=== PATIENT | female | born 1940 | race Caucasian/White ===

== ENCOUNTER 2016-07-28 16:44 | Emergency (ER) | payer MEDICARE, OTHER ==
[~2016-07-28 16:44] MED LIST: Sodium Chloride 0.9% 1,000 ML BAG ONE
[2016-07-28] MEDS ORDERED: Ondansetron ODT 4 MG TAB ONE (17:06)
[2016-07-28] MEDS ORDERED: Promethazine HCl 25 MG/ML VIAL ONE (17:45)
[2016-07-28] MEDS ORDERED: Meclizine HCl 25 MG TAB ONE (17:56)
[2016-07-28 18:00] LABS: #Basophils 0.1 thou/uL (0.0-0.2); #Lymphocytes 1.4 thou/uL (1.20-3.40); #Monocytes 0.3 thou/uL (0.11-0.59); #Neutrophils 4.3 thou/uL (1.40-6.50); %Basophils 0.8 % (0.0-1.0); %Eosinophils 0.6 % (0.0-10.0); %Lymphocytes 22.5 % (21.0-51.0); %Monocytes 5.1 % (0.0-10.0); %Neutrophils 70.9 % (42.0-75.0); Mean Corpuscular HGB CONC 34.5 g/dL (32.0-36.0); Mean Corpuscular Hemoglobin 31.5 pg (27.0-31.0); Mean Corpuscular Volume 91.4 fl (81.0-99.0); Platelet Count 283 thou/uL (130-400); RBC Distribution Width 11.8 % (11.5-14.5); Red Blood Cell (RBC) Count 4.44 mill/uL (4.20-5.40); White Blood Cell (WBC) Count 6.1 thou/uL (4.8-10.8)
[2016-07-28 18:14] LABS: ALT (SGPT) 309 U/L (0-55); AST (SGOT) 304 U/L (5-34); Albumin 3.9 g/dL (3.4-4.8); Alkaline Phosphatase 132 U/L (40-150); Anion Gap 17 mmol/L (10-20); BUN (Urea Nitrogen) 12 mg/dL (9.8-20.1); Bilirubin, Total 0.4 mg/dL (0.2-1.2); Calc. Creatinine Clearance 0 mL/min (70-130); Calcium 9.3 mg/dL (7.8-10.44); Carbon Dioxide 22 mmol/L (23-31); Chloride 96 mmol/L (98-107); Estimated GFR-MDRD 79; Globulin 2.6 g/dL (2.4-3.5); Glucose 140 mg/dL (83-110); Protein, Total 6.5 g/dL (5.8-8.1); Sodium 131 mmol/L (136-145)
--- NOTE | 2016-07-28 19:38 | ERRECORD ---
[facility] EMERGENCY RECORD HPI NAUSEA/VOMITING/DIARRHEA (17:06 [facility]) CHIEF COMPLAINT: Patient presents for evaluation of nausea, Patient presents for evaluation of and dizziness. HISTORIAN: History provided by patient, History provided by patient's spouse. SEVERITY: Maximum severity of symptoms moderate, Currently symptoms are moderate. TIME COURSE: Gradual onset of symptoms. ROS (17:07 [facility]) CONSTITUTIONAL: Negative constitutional review of systems, Historian denies chills, denies fever. EYES: Negative eye review of systems. ENT: Negative ears, nose, throat review of systems. CARDIOVASCULAR: Negative cardiovascular review of systems, Historian denies chest pain, denies palpitations. RESPIRATORY: Negative respiratory review of systems, Historian denies cough, denies shortness of breath. GI: Negative gastrointestinal review of systems, Historian denies abdominal pain, denies constipation, denies diarrhea. MUSCULOSKELETAL: Negative musculoskeletal review of systems. SKIN: Negative skin review of systems. NEUROLOGIC: Negative neurologic review of systems. ENDOCRINE: Negative endocrine review of systems. HEMO/LYMPHATIC: Normal hematologic/lymphatic system review. PSYCHIATRIC: Negative psychiatric review of systems. NOTES: All other ROS is negative except as listed in HPI. PAST MEDICAL HISTORY (17:07 [facility]) NOTES: I have reviewed and agree with the PMH/PSxH/FamHx/SocHx obtained by the nurse. KNOWN ALLERGIES codeine sulfate CURRENT MEDICATIONS No recorded medications VITAL SIGNS (16:49 [facility]) VITAL SIGNS: BP: 160/97, Pulse: 79, Resp: 20, Temp: 98.0 (Tympanic), Pain: 0, O2 sat: 98, Time: 07/28/2016 16:49. PHYSICAL EXAM (17:07 [facility]) CONSTITUTIONAL: Vital signs reviewed, Patient appears non toxic, Patient alert and oriented to person, place and time, Pt is in no apparent distress. HEAD: Head exam included findings of head atraumatic, normocephalic. EYES: Eye exam included findings of eyelids normal to inspection, Pupils equally round and reactive to light, Extraocular muscles &a-1R&a+25V*p+0X*[id number]*c152B*c15G*c2P*p-0X&a-25V&a+1RName: Narda Worthington : 1940 F75 MedRec: [id number] AcctNum: [id number] Prepared: Sat Aug 01, 2016 19:31 by Interface Page 1 of 3 pMD [facility] EMERGENCY RECORD intact. ENT: ENT exam normal, Nose exam normal, no nasal deformity, no bleeding from nares, Pharynx exam normal, Mouth exam normal, mucous membranes moist. NECK: Neck exam included findings of normal range of motion, Trachea midline. RESPIRATORY CHEST: Respiratory and chest exam normal, Breath sounds clear, No wheezing, No rales, Chest exam included findings of chest movement symmetrical, Chest expansion equal. CARDIOVASCULAR: Cardiovascular assessment normal, Cardiovascular exam included findings of heart rate regular rate and rhythm, Heart sounds normal. ABDOMEN FEMALE: Abdominal exam included findings of abdomen nontender, Bowel sounds normal, no mass, no pulsatile masses, no peritoneal signs. BACK: Back exam included findings of normal inspection, range of motion normal, no costovertebral angle tenderness. UPPER EXTREMITY: Upper extremity exam included findings of inspection normal, Range of motion normal. LOWER EXTREMITY: Lower extremity exam included findings of inspection normal, Range of motion normal. NEURO: Neuro exam findings include patient oriented to person, place and time, Speech normal, no focal motor deficits, no focal sensory deficits. SKIN: Skin exam included findings of skin warm, dry, and normal in color. LYMPHATIC: Lymphatic exam normal. PSYCHIATRIC: Psychiatric exam included findings of patient oriented to person place and time, Normal affect. MEDICATION ADMINISTRATION SUMMARY Drug Name: meclizine 25 mg po now, Dose Ordered: * , Route: Oral, Status: Given, Time: 18:00 07/28/2016, Drug Name: Phenergan injection, Dose Ordered: 6.25 mg, Route: IV Push, Status: Given, Time: 17:45 07/28/2016, Drug Name: Normal Saline, Dose Ordered: 1000 mL, Route: IV Fluid Infusion, Status: Given, Time: 17:45 07/28/2016, Drug Name: Zofran ODT, Dose Ordered: 2 tab(s), Route: Oral, Status: Given, Time: 17:10 07/28/2016, Detailed record available in Medication Service section. DOCTOR NOTES RE-EVALUATION: Routine re-evaluation, after administration of antiemetics, The patient's condition has improved. (19:58 ALMO) TEXT: Patient had dental work yesterday; used pain pills; now dizzy and nauseated. Denies other problems, fever, or injuries. (17:07 SHAN) relates that dizziness came first then nausea; may be a simple labrynthitis; but pain pills and dental procedure still suspect. Symptoms not better with the 8 mg Zofran; will check labs, &a-1R&a+25V*p+0X*[id number]*c152B*c15G*c2P*p-0X&a-25V&a+1RName: Narda Worthington : 1940 F75 MedRec: [id number] AcctNum: [id number] Prepared: Sat Aug 01, 2016 19:31 by Interface Page 2 of 3 pMD [facility] EMERGENCY RECORD allow promethazine and a liter of fluids. (17:32 SHAN) I interviewed and examined the patient including a full neurologic exam (HINTS and gait too). She has no focal neurologic findings but her symptoms are vague and not induced by head movement. 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 I have discussed this with her family doctor, Dr. Lion, who agrees with transferring the patient immediately for urgent neurological evaluation. However, the patient and her have refused transfer despite my strong recommendation and after explaining the risk of permanent neurologic damage and even . I advised them to return immediately if they changed their mind or she had problems and to call Dr. Lion's office tomorrow morning to set up the evaluation as an outpatient. (19:58 ALMO) PATIENT STATUS: Patient has stabilized since arrival to emergency department. (19:58 ALMO) D/W: the primary care physician. (19:58 ALMO) SIGN OUT: Patient signed out to, Dr. Dr. Connolly. (18:05 SHAN) PATIENT PLAN: Left AMA. (19:58 ALMO) DATA REVIEWED: Lab data reviewed. (19:58 ALMO) PROBLEM LIST No recorded problems DIAGNOSIS (19:19 GDUN) FINAL: PRIMARY: Vertigo, ADDITIONAL: Elevated Liver Enzymes. PRESCRIPTION No recorded prescriptions DISPOSITION PATIENT: Condition: Guarded, Disposition Type: Eloped, Disposition: Against Medical Advice. (19:18 GDUN) Patient left the department. (19:27 GDUN) Jimenez: KASSI=MD Mohsen, Juan Antonio DAVIDSONUN=JAKUB Swain, [place] REAGAN=JAKUB Beverly, Moraima SHERMAN=MD Bonny, Yvan &a-1R&a+25V*p+0X*[id number]*c152B*c15G*c2P*p-0X&a-25V&a+1RName: Narda Worthington : 1940 F75 MedRec: [id number] AcctNum: [id number] Prepared: Beau Aug 01, 2016 19:31 by Interface Page 3 of 3 pMD MTDD
--- NOTE | 2016-07-28 19:50 | PICIS ---
[facility] EMERGENCY RECORD TRIAGE (WedJul 28, 2016 16:50 MDEB) PATIENT: NAME: Narda Worthington, AGE: 75, GENDER: female, : Wed1940, TIME OF GREET: WedJul 28, 2016 16:44, PREFERRED LANGUAGE: Faroese, RACE: WHITE, ETHNICITY: Not or , ECODE BILLING MAP: [facility], SSN: [id number], Zip Code: [address], KG WEIGHT: 108.86, PHONE: , , , PERSON ID: [id number], PCP: UNKNOWN. (WedJul 28, 2016 16:50 MDEB) TRIAGE NOTES: NAUSEA ET DIZZY. (WedJul 28, 2016 16:50 MDEB) COMPLAINT: DIZZY,NAUSEA. (WedJul 28, 2016 16:50 MDEB) ADMISSION: URGENCY: 3 Urgent, ADMISSION SOURCE: Home, TRANSPORT: Walk-in, BED: TRIAGE. (WedJul 28, 2016 16:50 MDEB) ASSESSMENT: Assessment: PT STATES SHE HAS BEEN NAUSEATED AFTER TAKING TRAMADOL THIS AM. (16:50 MDEB) TRIAGE SCREENING: Patient denies suicidal ideation, Patient denies presence of domestic violence. (WedJul 28, 2016 16:50 MDEB) PROVIDERS: TRIAGE NURSE: Moraima Beverly RN. (WedJul 28, 2016 16:50 MDEB) VITAL SIGNS: BP 160/97, Pulse 79, Resp 20, Temp 98.0, (Tympanic), Pain 0, O2 Sat 98, Time 07/28/2016 16:49. (16:49 MDEB) KNOWN ALLERGIES codeine sulfate CURRENT MEDICATIONS No recorded medications VITAL SIGNS (16:49 MDEB) VITAL SIGNS: BP: 160/97, Pulse: 79, Resp: 20, Temp: 98.0 (Tympanic), Pain: 0, O2 sat: 98, Time: 07/28/2016 16:49. NURSING ASSESSMENT: HEAD-TO-TOE (16:50 MDEB) CONSTITUTIONAL: Patient arrives ambulatory, Gait steady, History obtained from patient, Patient appears, anxious, generally ill, uncomfortable, Patient cooperative, Patient alert, Oriented to person, place and time, Skin warm, Skin dry, Skin normal in color, Mucous membranes pink, Mucous membranes moist, Patient is well-groomed, Patient complains of DIZZY, NAUSEATED. PAIN: Patient rates pain as 0 out of 10. SKIN: Skin assessment findings include skin warm, Skin dry, Skin normal in color. NEURO: Pupils equally round and reactive to light, Left pupil 2 mm in size, Right pupil 2 mm in size, Able to close eyes, Face symmetrical, Speech normal, GCS:, Eye opening: (4) - Spontaneous, Verbal: (5) - Oriented/conversive, Motor: (6) - Obeys commands/Spontaneous, GCS Total: 15, Associated with dizziness described as, feeling unsteady. ENT: Ear assessment findings include ear normal to inspection, Nasal assessment findings include nose normal to inspection, Mouth &a-1R&a+25V*p+0X*i3071N*c152B*c15G*c2P*p-0X&a-25V&a+1RName: Narda Worthington : 1940 F75 MedRec: [id number] AcctNum: [id number] Prepared: Sat Aug 01, 2016 19:31 by Interface Page 1 of 8 pMD [facility] EMERGENCY RECORD and throat assessment findings include mouth inspection normal, Mucous membranes pink, and moist, Able to swallow, Speech normal. NECK: Neck assessment findings include trachea midline. RESPIRATORY/CHEST: Breath sounds clear, Respiratory assessment findings include respiratory effort easy, Respirations regular, Conversing normally, Neck and chest exam findings include trachea midline, Chest expansion equal, Chest movement symmetrical. CARDIOVASCULAR: Cardiovascular assessment findings include heart rate normal, Heart rhythm, sinus arrhythmia, Heart sounds normal, S1, S2, Associated with dizziness, PT UNSTEADY. ABDOMEN: Abdomen assessment findings include abdomen symmetrical, Abdomen soft. GENITOURINARY FEMALE: Notes: DEFERRED AT THIS TIME. LEFT UPPER EXTREMITY: Left upper extremity assessment findings include capillary refill less than 2 seconds, Skin color normal to hand, Skin temperature to hand warm, Distal sensation intact, Muscle tone normal. RIGHT UPPER EXTREMITY: Right upper extremity assessment findings include capillary refill less than 2 seconds, Skin color normal to hand, Skin temperature to hand warm, Distal sensation intact, Muscle tone normal. LEFT LOWER EXTREMITY: Left lower extremity assessment findings include capillary refill less than 2 seconds, Skin color normal, Skin temperature warm, Distal sensation intact, Muscle tone normal. RIGHT LOWER EXTREMITY: Right lower extremity assessment findings include capillary refill less than 2 seconds, Skin color normal, Skin temperature warm, Distal sensation intact, Muscle tone normal. PSYCH/SOCIAL: Psychiatric/social assessment findings include affect normal. NOTES: Emotional support needed and given. NURSING PROCEDURE: IV (17:45 MDEB) PATIENT IDENITIFIER: Patient actively involved in identification process, Patient's identity verified by patient stating name, Patient's identity verified by hospital ID bracelet. IV SITE 1: IV therapy indicated for hydration, IV therapy indicated for medication administration, IV established, to the left wrist, using a 20 gauge catheter, in one attempt, IV site prepped with ALCOHOL, Saline lock established, Flushed with normal saline (mls): 10, Labs drawn at time of placement, labeled in the presence of the patient and sent to lab. FOLLOW-UP SITE 1: After procedure, sterile transparent dressing applied. NOTES: Emotional support needed and given, Patient tolerated procedure well. NURSING PROCEDURE: URINE COLLECTION (16:58 SFRE) URINE COLLECTION FEMALE: Urine collected by void, output amount (mL) 700, urine yellow in color, and clear, BSC. &a-1R&a+25V*p+0X*t4674V*c152B*c15G*c2P*p-0X&a-25V&a+1RName: Narda Worthington : 1940 F75 MedRec: [id number] AcctNum: [id number] Prepared: Beau Aug 01, 2016 19:31 by Interface Page 2 of 8 pMD [facility] EMERGENCY RECORD ORDER DETAILS Order Name: CBC with Differential, Status: Active, Time: 17:32 07/28/2016, User: LANE, - Ordered for: MD Draper Stanley, - Entered by: MD Draper Stanley - Tue Jul 28, 2016 17:32, - Quantity: 1, Order Name: Comprehensive Metabolic Panel, Status: Active, Time: 17:32 07/28/2016, User: LANE, - Ordered for: MD Draper Stanley, - Entered by: MD Draper Stanley - Tue Jul 28, 2016 17:32, - Quantity: 1. MEDICATION ADMINISTRATION SUMMARY Drug Name: meclizine 25 mg po now, Dose Ordered: * , Route: Oral, Status: Given, Time: 18:00 07/28/2016, Drug Name: Phenergan injection, Dose Ordered: 6.25 mg, Route: IV Push, Status: Given, Time: 17:45 07/28/2016, Drug Name: Normal Saline, Dose Ordered: 1000 mL, Route: IV Fluid Infusion, Status: Given, Time: 17:45 07/28/2016, Drug Name: Zofran ODT, Dose Ordered: 2 tab(s), Route: Oral, Status: Given, Time: 17:10 07/28/2016, Detailed record available in Medication Service section. MEDICATION SERVICE meclizine 25 mg po now: Free Text order: meclizine 25 mg po now : : Oral Ordered by: Yvan Draper MD Entered by: Yvan Draper MD [facility] Jul 28, 2016 18:01 Documented as given by: Moraima Beverly RN [facility] Jul 28, 2016 18:00 Patient, Medication, Dose, Route and Time verified prior to administration. Amount given: 25 MG, Site: Medication administered P.O., Correct patient, time, route, dose and medication confirmed prior to administration, Patient advised of actions and side-effects prior to administration, Allergies confirmed and medications reviewed prior to administration, Patient in position of comfort, Side rails up, Cart in lowest position, Family at bedside. : Follow Up : Response assessment performed, Decreased symptoms, Advised not to ambulate without assistance, Patient in position of comfort, Side rails up, Cart in lowest position, Family at bedside. (19:22 MDEB) Normal Saline: Order: Normal Saline (0.9 % sodium chloride) - Dose: 1000 mL : IV Fluid Infusion Schedule: Bolus Ordered by: Yvan Draper MD Entered by: Yvan Draper MD [facility] Jul 28, 2016 17:31 Documented as given by: Moraima Beverly RN [facility] Jul 28, 2016 17:45 Patient, Medication, Dose, Route and Time verified prior to administration. &a-1R&a+25V*p+0X*i4863G*c152B*c15G*c2P*p-0X&a-25V&a+1RName: Narda Worthington : 1940 F75 MedRec: [id number] AcctNum: [id number] Prepared: Sat Aug 01, 2016 19:31 by Interface Page 3 of 8 pMD [facility] EMERGENCY RECORD Amount given: 1000 ML, IV SITE #1 IV fluids established for hydration, IV SITE #1 into right forearm, IV SITE #1 1st bag hung, IV SITE #1 bolus of 1000 ml established, IV SITE #1 Rate of bolus, wide open, via primary tubing, Catheter placement confirmed via flush prior to administration, IV site without signs or symptoms of infiltration during medication administration, No swelling during administration, No drainage during administration, IV flushed after administration, Correct patient, time, route, dose and medication confirmed prior to administration, Patient advised of actions and side-effects prior to administration, Allergies confirmed and medications reviewed prior to administration, Patient in position of comfort, Side rails up, Cart in lowest position, Family at bedside. : Follow Up : _IV SITE #1:_, IV fluid infusion discontinued, on WedJul 28, 2016 18:45, Total fluid hydration time IV site 1 1 hour, ., Total amount infused: 1000 ML, Advised not to ambulate without assistance, Patient in position of comfort, Side rails up, Cart in lowest position, Family at bedside. (18:45 MERARY) Phenergan injection: Order: Phenergan injection (promethazine HCl) - Dose: 6.25 mg : IV Push Schedule: Now Ordered by: Yvan Draper MD Entered by: Yvan Draper MD WedJul 28, 2016 17:31 Documented as given by: Moraima Beverly RN WedJul 28, 2016 17:45 Patient, Medication, Dose, Route and Time verified prior to administration. Amount given: 6.25 MG, IV SITE #1 IVP, initial medication, Slowly, Catheter placement confirmed via flush prior to administration, IV site without signs or symptoms of infiltration during medication administration, No swelling during administration, No drainage during administration, IV flushed after administration, Correct patient, time, route, dose and medication confirmed prior to administration, Patient advised of actions and side-effects prior to administration, Allergies confirmed and medications reviewed prior to administration, Patient in position of comfort, Side rails up, Cart in lowest position, Family at bedside. Zofran ODT: Order: Zofran ODT (ondansetron) - Dose: 2 tab(s) : Oral Schedule: Now Ordered by: Yvan Draper MD Entered by: MD Miguel Patrick Jul 28, 2016 17:06 Documented as given by: JAKUB Gallagher Jul 28, 2016 17:10 Patient, Medication, Dose, Route and Time verified prior to administration. Amount given: 8 mg, Site: Medication administered P.O., Correct patient, time, route, dose and medication confirmed prior to administration, Patient advised of actions and side-effects prior to administration, Allergies confirmed and medications reviewed prior to administration, Patient in position of comfort, Side rails up, Cart in lowest position, Family at bedside. HPI NAUSEA/VOMITING/DIARRHEA (17:06 LANE) &a-1R&a+25V*p+0X*s1325J*c152B*c15G*c2P*p-0X&a-25V&a+1RName: Narda Worthington : 1940 F75 MedRec: [id number] AcctNum: [id number] Prepared: Beau Aug 01, 2016 19:31 by Interface Page 4 of 8 pMD [facility] EMERGENCY RECORD CHIEF COMPLAINT: Patient presents for evaluation of nausea, Patient presents for evaluation of and dizziness. HISTORIAN: History provided by patient, History provided by patient's spouse. SEVERITY: Maximum severity of symptoms moderate, Currently symptoms are moderate. TIME COURSE: Gradual onset of symptoms. ROS (17:07 LANE) CONSTITUTIONAL: Negative constitutional review of systems, Historian denies chills, denies fever. EYES: Negative eye review of systems. ENT: Negative ears, nose, throat review of systems. CARDIOVASCULAR: Negative cardiovascular review of systems, Historian denies chest pain, denies palpitations. RESPIRATORY: Negative respiratory review of systems, Historian denies cough, denies shortness of breath. GI: Negative gastrointestinal review of systems, Historian denies abdominal pain, denies constipation, denies diarrhea. MUSCULOSKELETAL: Negative musculoskeletal review of systems. SKIN: Negative skin review of systems. NEUROLOGIC: Negative neurologic review of systems. ENDOCRINE: Negative endocrine review of systems. HEMO/LYMPHATIC: Normal hematologic/lymphatic system review. PSYCHIATRIC: Negative psychiatric review of systems. NOTES: All other ROS is negative except as listed in HPI. PAST MEDICAL HISTORY (:) NOTES: I have reviewed and agree with the PMH/PSxH/FamHx/SocHx obtained by the nurse. PHYSICAL EXAM (:07 ) CONSTITUTIONAL: Vital signs reviewed, Patient appears non toxic, Patient alert and oriented to person, place and time, Pt is in no apparent distress. HEAD: Head exam included findings of head atraumatic, normocephalic. EYES: Eye exam included findings of eyelids normal to inspection, Pupils equally round and reactive to light, Extraocular muscles intact. ENT: ENT exam normal, Nose exam normal, no nasal deformity, no bleeding from nares, Pharynx exam normal, Mouth exam normal, mucous membranes moist. NECK: Neck exam included findings of normal range of motion, Trachea midline. RESPIRATORY CHEST: Respiratory and chest exam normal, Breath sounds clear, No wheezing, No rales, Chest exam included findings of chest movement symmetrical, Chest expansion equal. CARDIOVASCULAR: Cardiovascular assessment normal, Cardiovascular exam included findings of heart rate regular rate and rhythm, Heart &a-1R&a+25V*p+0X*n1766Y*c152B*c15G*c2P*p-0X&a-25V&a+1RName: Narda Worthington : 1940 F75 MedRec: [id number] AcctNum: [id number] Prepared: Sat Aug 01, 2016 19:31 by Interface Page 5 of 8 pMD [facility] EMERGENCY RECORD sounds normal. ABDOMEN FEMALE: Abdominal exam included findings of abdomen nontender, Bowel sounds normal, no mass, no pulsatile masses, no peritoneal signs. BACK: Back exam included findings of normal inspection, range of motion normal, no costovertebral angle tenderness. UPPER EXTREMITY: Upper extremity exam included findings of inspection normal, Range of motion normal. LOWER EXTREMITY: Lower extremity exam included findings of inspection normal, Range of motion normal. NEURO: Neuro exam findings include patient oriented to person, place and time, Speech normal, no focal motor deficits, no focal sensory deficits. SKIN: Skin exam included findings of skin warm, dry, and normal in color. LYMPHATIC: Lymphatic exam normal. PSYCHIATRIC: Psychiatric exam included findings of patient oriented to person place and time, Normal affect. EVENTS TRANSFER: Triage to Emergency Triage. (WedJul 28, 2016 16:50 MDEB) Emergency Triage to Main ED -03. (16:50 MDEB) Removed from Emergency Main ED -03. (19:27 GDUN) DOCTOR NOTES RE-EVALUATION: Routine re-evaluation, after administration of antiemetics, The patient's condition has improved. (19:58 ALMO) TEXT: Patient had dental work yesterday; used pain pills; now dizzy and nauseated. Denies other problems, fever, or injuries. (17:07 LANE) relates that dizziness came first then nausea; may be a simple labrynthitis; but pain pills and dental procedure still suspect. Symptoms not better with the 8 mg Zofran; will check labs, allow promethazine and a liter of fluids. (17:32 LANE) I interviewed and examined the patient including a full neurologic exam (HINTS and gait too). She has no focal neurologic findings but her symptoms are vague and not induced by head movement. 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 I have discussed this with her family doctor, Dr. Lion, who agrees with transferring the patient immediately for urgent neurological evaluation. However, the patient and her have refused transfer despite my strong recommendation and after explaining the risk of permanent neurologic damage and even . I advised them to return immediately if they changed their mind or she had problems and to call Dr. Lion's office tomorrow morning to set up the evaluation as an outpatient. (19:58 ALMBurke) PATIENT STATUS: Patient has stabilized since arrival to emergency department. (19:58 ALMBurke) &a-1R&a+25V*p+0X*n9685K*c152B*c15G*c2P*p-0X&a-25V&a+1RName: Narda Worthington : 1940 F75 MedRec: [id number] AcctNum: [id number] Prepared: Sat Aug 01, 2016 19:31 by Interface Page 6 of 8 pMD [facility] EMERGENCY RECORD D/W: the primary care physician. (19:58 ALMBurke) SIGN OUT: Patient signed out to, Dr. Dr. Connolly. (18:05 LANE) PATIENT PLAN: Left AMA. (19:58 ALMO) DATA REVIEWED: Lab data reviewed. (19:58 ALMO) PROBLEM LIST No recorded problems DIAGNOSIS (19:19 GDUN) FINAL: PRIMARY: Vertigo, ADDITIONAL: Elevated Liver Enzymes. DISPOSITION PATIENT: Condition: Guarded, Disposition Type: Eloped, Disposition: Against Medical Advice. (19:18 GDUN) Patient left the department. (19:27 GDUN) INSTRUCTION (19:21 GDUN) DISCHARGE: DIZZINESS, UNK CAUSE. FOLLOWUP: Sylvia LION, SURJIT SIDHU, [facility] , , Follow up with Primary Care Physician in 1 day. SPECIAL: Call office tomorrow morning for appointment. They will see you tomorrow. PRESCRIPTION No recorded prescriptions IMAGING AMA/LWBS: Image captured from scanner. (19:25 GDUN) *DISCHARGE INSTRUCTIONS RECEIPT: Image captured from scanner. (19:26 GDUN) *SUPPLY CHARGE SHEET: Image captured from scanner. (19:26 GDUN) ADMIN ([facility] Aug 01, 2016 19:24 SHAN) DIGITAL SIGNATURE: MD Draper Stanley. RESULTS LABORATORY: CBC with Differential Collection DT: WedJul 28, 2016 17:57, White Blood Cell (WBC) Count 6.1 thou/uL, Range (4.8-10.8), Red Blood Cell (RBC) Count 4.44 mill/uL, Range (4.20-5.40), Hemoglobin 14.0 g/dL, Range (12.0-16.0), Hematocrit 40.6 %, Range (36.0-47.0), Mean Corpuscular Volume 91.4 fl, Range (81.0-99.0), *Mean Corpuscular Hemoglobin 31.5 - H pg, Range (27.0-31.0), Mean Corpuscular HGB CONC 34.5 g/dL, Range (32.0-36.0), RBC Distribution Width 11.8 %, Range (11.5-14.5), Platelet Count 283 thou/uL, Range (130-400), Mean Platelet Volume 8.0 fL, Range (7.4-10.4), %Neutrophils 70.9 %, Range (42.0-75.0), &a-1R&a+25V*p+0X*e3754V*c152B*c15G*c2P*p-0X&a-25V&a+1RName: Narda Worthington : 1940 F75 MedRec: [id number] AcctNum: [id number] Prepared: [facility] Aug 01, 2016 19:31 by Interface Page 7 of 8 pMD [facility] EMERGENCY RECORD %Lymphocytes 22.5 %, Range (21.0-51.0), %Monocytes 5.1 %, Range (0.0-10.0), %Eosinophils 0.6 %, Range (0.0-10.0), %Basophils 0.8 %, Range (0.0-1.0), #Neutrophils 4.3 thou/uL, Range (1.40-6.50), #Lymphocytes 1.4 thou/uL, Range (1.20-3.40), #Monocytes 0.3 thou/uL, Range (0.11-0.59), #Eosinphils 0.0 thou/uL, Range (0.0-0.7), #Basophils 0.1 thou/uL, Range (0.0-0.2). (18:03 SHAN) Comprehensive Metabolic Panel Collection DT: WedJul 28, 2016 17:57, *Sodium 131 - L mmol/L, Range (136-145), Potassium 4.0 mmol/L, Range (3.5-5.1), *Chloride 96 - L mmol/L, Range (98-107), *Carbon Dioxide 22 - L mmol/L, Range (23-31), Anion Gap 17 mmol/L, Range (10-20), BUN (Urea Nitrogen) 12 mg/dL, Range (9.8-20.1), Creatinine 0.72 mg/dL, Range (0.6-1.1), Estimated GFR-MDRD 79 , Reference Range for Estimated GFR: Greater than 90, mL/min/1.73 m2 NOTE: The MDRD equation has not been validated for use, with the elderly (over 70 years of age), women, patients with, serious comorbid condition or persons with extremes of body size, muscle, mass, or nutritional status. , *Glucose 140 - H mg/dL, Range (83-110), Calcium 9.3 mg/dL, Range (7.8-10.44), Bilirubin, Total 0.4 mg/dL, Range (0.2-1.2), Protein, Total 6.5 g/dL, Range (5.8-8.1), NOTE: Plasma values are generally 0.3 to 0.5 g/dL higher than serum values, due to the presence of fibrinogen. , Albumin 3.9 g/dL, Range (3.4-4.8), Globulin 2.6 g/dL, Range (2.4-3.5), Alb/Glob Ratio 1.5 g/dL, Range (1.2-2.2), Alkaline Phosphatase 132 U/L, Range (40-150), *AST (SGOT) 304 - H U/L, Range (5-34), *ALT (SGPT) 309 - H U/L, Range (0-55). (19:00 MERARY) Jimenez: KASSI=MD Mohsen, Juan Antonio NICHOLSON=JAKUB Swain, [place] REAGAN=JAKUB Beverly, Moraima KNIGHT=JAKUB Mccann, Grisel SHERMAN=MD Bonny, Yvan &a-1R&a+25V*p+0X*x0696U*c152B*c15G*c2P*p-0X&a-25V&a+1RName: Narda Worthington : 1940 F75 MedRec: [id number] AcctNum: [id number] Prepared: Beau Aug 01, 2016 19:31 by Interface Page 8 of 8 pMD MTDD
== END 2016-07-28 19:25 | disposition home or self-care (01) ==
LOC: MADERS 16:44
DX: R42 Dizziness and giddiness (principal); R94.5 Abnormal results of liver function studies
CPT/HCPCS: 80053; 85025; 96361; 96374; J2550; J7050; Q0162

== ENCOUNTER 2018-09-28 05:14 | Emergency (ER) | payer MEDICARE, OTHER ==
[2018-09-28 05:38] LABS: Bilirubin Negative (Negative); Blood, Urine Trace (Negative); Glucose, Urine (Dipstick) 100 mg/dL (Negative); Leukocyte Negative (Negative); Nitrite Positive (Negative); Protein, Urine (Dipstick) Negative (Neg-Trace); pH, Urine 5.5 (5.0-9.0)
[2018-09-28 05:41] LABS: Clarity Clear (Clear)
[2018-09-28 05:48] LABS: WBC/HPF 0-3 HPF (0-3)
[2018-09-28 05:49] LABS: Bacteria/HPF None Seen HPF (None Seen)
== END 2018-09-28 06:54 | disposition home or self-care (01) ==
LOC: MADERS 05:14
DX: N39.0 Urinary tract infection, site not specified (principal); E03.9 Hypothyroidism, unspecified; E78.5 Hyperlipidemia, unspecified; I10 Essential (primary) hypertension; Z79.899 Other long term (current) drug therapy; Z79.84 Long term (current) use of oral hypoglycemic drugs
CPT/HCPCS: 81003; 81015; 99283